=== PATIENT | male | born 1965 | race Caucasian/White ===

== ENCOUNTER 2019-06-19 21:59 | Emergency (ER) | payer OTHER ==
[2019-06-19 22:13] VITALS: Ht 172.7 cm
[2019-06-19 22:59] VITALS: BP 113/79
== END 2019-06-19 22:59 | disposition home or self-care (01) ==
LOC: ED 21:59
DX: S51.852A Open bite of left forearm, initial encounter (principal); W54.0XXA Bitten by dog, initial encounter; Y93.89 Activity, other specified; Y92.89 Other specified places as the place of occurrence of the external cause; Y99.8 Other external cause status
CPT/HCPCS: 90715